=== PATIENT | male | born 1935 | race Caucasian/White ===

== ENCOUNTER 2018-02-06 07:51 | Observation (INO) | payer MEDICARE, BC ==
[2018-02-06] MEDS ORDERED: Ondansetron 4 MG/2 ML SDV IVPUSH ONE (08:18)
[2018-02-06] MEDS ORDERED: Ondansetron 4 MG/2 ML SDV ONE (08:19)
[2018-02-06] MEDS ORDERED: NS + KCl 20mEq/L 1,000 ML ONE (08:58)
[2018-02-06] MEDS ORDERED: NS + KCl 20mEq/L 1,000 ML IV SCH (09:15)
[2018-02-06] MEDS ORDERED: Aspirin 81 MG Tab.Chew PO ONE (09:51)
[2018-02-06] MEDS ORDERED: Ondansetron 4 MG/2 ML SDV IVPUSH PRN (10:16)
[2018-02-06] MEDS: HYDROCHLOROTHIAZIDE PO SCH (16:06)
[2018-02-06] MEDS: LISINOPRIL PO SCH (16:06)
[2018-02-06] MEDS: Fluticasone Propionate Nasal Spray 16 GM Bottle **OWN MED NAS SCH (16:06)
[2018-02-06] MEDS: [UNRECOGNIZED DRUG - REMARK] PO SCH (16:07)
--- NOTE | 2018-02-06 16:30 | HP ---
Date of Admission: 02/06/2018 SUBJECTIVE: The patient is an 82-year-old male, who woke up at midnight to go to the bathroom, was extremely nauseated and dizzy and weak. He had several episodes of emesis and 3 episodes of diarrhea. No fevers. No blood in the stool. He presented to the emergency room by ambulance in the morning. At that time, the patient was still dizzy. He had a fairly extreme vertigo with movement. He did not appear to have nystagmus. However, he was not vomiting anymore. He got some Zofran in the ER and some IV fluid. He still , however, was quite dizzy, had a positive Romberg. ALLERGIES: NKDA. CURRENT MEDICATIONS: Lisinopril hydrochlorothiazide 03/17.5, he takes that twice a day. He also has some Flonase nasal spray. SOCIAL HISTORY: The patient notes he previously smoked. He quit smoking in 1997. PAST MEDICAL HISTORY: He does not have a history of coronary artery disease. PHYSICAL EXAMINATION: GENERAL: He is alert, oriented, but is unable to move rapidly without getting quite dizzy. VITAL SIGNS: Pulse was 72, blood pressure was 159/71, O2 saturation was 97%. HEENT: Generally unremarkable. Again, I did not notice any nystagmus with rapid head movement. HEENT: Otherwise unremarkable. NECK: Supple. No nodes. No bruits. HEART: Regular sinus rhythm. LUNGS: Clear. NEUROLOGIC: Exam is nonfocal other than the dizziness and the positive Romberg. He has no focal weakness. ASSESSMENT: Vertigo. PLAN: I did discuss with the patient and also called and spoke with Neurology in [place]. My concern is that he could have a vertebrobasilar stroke which is causing the symptoms. He did briefly have an episode of double vision when I asked him, and he does have some mild headache with moving it rapidly. His symptoms could be consistent with that. However, the MRI is not available today, but it will be tomorrow. I spoke with Dr. Mcnally in [place], who noted we could send him over there, but he has passed the window for when any intervention is likely to occur and his symptoms are still relatively mild, so he did not state the patient needed emergent transfer, but it would be useful to obtain an MRI to rule out a small stroke and the patient is extremely dizzy. We will go ahead and finish his IV fluids and admit him to observation to monitor him overnight and then we will obtain the MRI tomorrow. If the MRI is negative, we can discharge him to home. If it is positive, we will have to see how his symptoms are doing. The patient is from [facility], came down by ambulance. He has a car up in [place] and he himself lives in [place], but at this point, he is unable to drive on his own due to the dizziness, so we will go ahead and get the MRI in the morning and see how the patient is doing clinically, but in the meantime, we will refer him for observation. BIJAL/SUSAN BALBIR
[2018-02-06] MEDS: Acetaminophen 500 MG Tab PO PRN (18:46)
[2018-02-07] MEDS: Acetaminophen 500 MG Tab PO PRN ×2 (04:32→12:42)
[2018-02-07] MEDS ORDERED: Aspirin 81 MG Tab.Chew PO SCH (08:00)
[2018-02-07] MEDS: Fluticasone Propionate Nasal Spray 16 GM Bottle **OWN MED NAS SCH (08:21)
[2018-02-07] MEDS: HYDROCHLOROTHIAZIDE PO SCH (08:28)
[2018-02-07] MEDS: LISINOPRIL PO SCH (08:28)
[2018-02-07] MEDS: [UNRECOGNIZED DRUG - REMARK] PO SCH (08:38)
[2018-02-07] MEDS ORDERED: ALPRAZolam 0.25 MG Tab PO ONE (09:00)
--- NOTE | 2018-02-08 07:28 | MR ---
DATE OF SERVICE: 02/07/18 CLINICAL DATA: Dizziness. BRAIN MRI: Routine MR protocol without IV contrast was performed. There is diffuse cerebral atrophy. There are multiple foci of bright signal intensity involving the periventricular white matter on the T2 and FLAIR images consistent with small vessel ischemic change. No masses or mass effect. No intracranial hemorrhage. No evidence of acute or subacute infarct. There is mucosal thickening in the ethmoid sinuses consistent with chronic sinusitis. IMPRESSION: No acute intracranial abnormalities. [id number] [facility]
--- NOTE | 2018-02-09 04:10 | DISCH ---
HOSPITAL COURSE: The patient is an 82-year-old male, woke up at midnight with extreme nausea, dizziness, and weakness. The patient had several episodes of emesis, 3 episodes of diarrhea. He presented to the emergency room where he was quite dizzy with vertigo and a positive Romberg. The patient is on lisinopril/hydrochlorothiazide 10/12.5 p.o. b.i.d. and some Flonase nasal spray. The patient was given some Zofran in the ER and some meclizine. He apparently got Dramamine on the ambulance ride down. The patient was improved after the Zofran and the meclizine but not a lot. He still had quite a bit of vertigo with movement, but he did not have nystagmus. I did speak with the neurologist as the patient also had a small episode of double vision when looking close up. He did have a little bit of headache. He was basically past the window for stroke intervention and the MRI came here the next day, so he was placed on 23-hour observation where he steadily improved. He was up and standing and moving around by the next day, doing fairly well. He was eating, everything was going fine. We did obtain the MRI, which did not show any acute or subacute stroke. He did have some small periventricular white matter signal for ischemic small-vessel disease, but again, no obvious stroke, and his symptoms had improved quite dramatically. The patient was discharged home in good condition with instructions to discuss this when he gets home with his regular primary care physician. ASSESSMENT: Vertigo. He still could have had some vertebrobasilar insufficiency or a TIA. I have encouraged him to continue with his aspirin, and he can discuss whether or not he wants to take other medications such as statin or a different anti-platelet agent with his primary care physician when he gets home. If he develops any further symptoms, would have him return to the emergency room. WILFRID /[id number]
== END 2018-02-07 13:17 | disposition home or self-care (01) ==
LOC: LB.ED 07:51 → LB.MS 10:07
PROVIDERS: ADMIT Family Medicine; ATTEND Family Medicine
DX: R42 Dizziness and giddiness (principal); R11.2 Nausea with vomiting, unspecified; R19.7 Diarrhea, unspecified; Z79.899 Other long term (current) drug therapy; Z87.891 Personal history of nicotine dependence
CPT/HCPCS: 36415; 70544; 80053; 85025; 96361; 96374; 99284; 99285-25; A9270-GY; J2405; J3480